=== PATIENT | male | born 1960 | race Caucasian/White ===

== ENCOUNTER 2018-03-05 23:38 | Emergency (ER) | payer OTHER ==
[~2018-03-05] VITALS: Ht 175.3 cm; Wt 77.1 kg
[2018-03-05 23:58] VITALS: BP_SYST 142
[2018-03-06 01:25] VITALS: BP_SYST 138
== END 2018-03-06 01:25 | disposition home or self-care (01) ==
LOC: SED 23:38
DX: B82.9 Intestinal parasitism, unspecified (principal); E78.00 Pure hypercholesterolemia, unspecified; M10.9 Gout, unspecified; E11.9 Type 2 diabetes mellitus without complications; I10 Essential (primary) hypertension; F17.200 Nicotine dependence, unspecified, uncomplicated
CPT/HCPCS: 99281